=== PATIENT | male | born 1960 | race American Indian/Alaskan Native ===

== ENCOUNTER 2017-03-02 14:22 | Outpatient (CLI) | payer OTHER | END 2017-03-02 14:23 | disposition home or self-care (01) | LOC: LABHHL 14:22 | PROVIDERS: ATTEND Internal Medicine Gastroenterology | DX: D12.2 Benign neoplasm of ascending colon (principal); D12.3 Benign neoplasm of transverse colon | CPT/HCPCS: 88305 ==